=== PATIENT | male | born 1980 | race Caucasian/White ===

== ENCOUNTER 2019-09-09 10:18 | Emergency (ER) | payer OTHER ==
[2019-09-09 10:34] VITALS: BP 124/80; PULSE 65; RESP 18; TEMP 98.4
[2019-09-09] MEDS ORDERED: LIDOCAINE 1%-EPI 1:100,000 20 ML VIAL SQ STA (10:37)
--- NOTE | 2019-09-09 10:38 | ED ---
General Adult HPI - General Chief complaint: Skin/Abscess/Foreign Body Stated complaint: abcess on right side of scalp Time Seen by Provider: 09/09/19 10:32 Source: patient Mode of arrival: ambulatory Limitations: no limitations - History of Present Illness Initial comments: Dictation was produced using [employer] dictation software. please excuse any grammatical, word or spelling errors. This patient was cared for during a federal and state declared state of emergency secondary to Covid 19 Chief Complaint: 38 yo inmate presents with persistent scalp abscess History of Present Illness: Patient is a 38-year-old male who presents today with persistent abscess on the scalp. Patient was brought in by [facility] staff. Patient states he's had this abscess for several days. [facility] staff provided patient with Bactrim however his symptoms do not improve. They tried to drain it prior to coming to the emergency Department with no success. Patient reports that symptoms are persistent. He has been applying warm water to the abscess daily noted to treat the abscess. The ROS documented in this emergency department record has been reviewed and confirmed by me. Those systems with pertinent positive or negative responses have been documented in the HPI. All other systems are other negative and/or noncontributory. PHYSICAL EXAM: General Impression: Alert and oriented x3, not in acute distress HEENT: Normocephalic atraumatic, extra-ocular movements intact, pupils equal and reactive to light bilaterally, mucous membranes moist, abscess located just to the right of the midline posterior scalp, no surrounding erythema, abscess measures approximately 2 x 2 centimeters, there is a skin opening with dense purulent fluid at the tip Cardiovascular: Heart regular rate and rhythm Chest: Able to complete full sentences, no retractions, no tachypnea Abdomen: abdomen soft, non-tender, non-distended, no organomegaly Musculoskeletal: Pulses present and equal in all extremities, no peripheral edema Motor: no focal deficits noted Neurological: CN II-XII grossly intact, no focal motor or sensory deficits noted Skin: Intact with no visualized rashes Psych: Normal affect and mood ED course: 38 y Old male presents with persistent scalp abscess. [place] upon arrival are within acceptable limits. Wound site was anesthetized using lidocaine with epinephrine. There appeared to be a purulent plug blocking the outflow. Loculations were broken up with forceps. The plug was removed. Patient tolerated procedure well. He completed 40 course of action. Patient will be started on 5 day course of Keflex. [facility] follow-up with [facility]. - Related Data Previous Rx's Medication Instructions Recorded Cephalexin [Keflex] 500 mg PO Q6HR 5 Days #20 cap 09/09/19 Allergies Allergy/AdvReac Type Severity Reaction Status Date / Time bee venom protein (honey bee) Allergy Swelling Verified 09/09/19 10:27 Review of Systems ROS Statement: Those systems with pertinent positive or pertinent negative responses have been documented in the HPI. ROS Other: All systems not noted in ROS Statement are negative. Past Medical History Past Medical History: No Reported History History of Any Multi-Drug Resistant Organisms: None Reported Past Surgical History: No Surgical Hx Reported Past Psychological History: No Psychological Hx Reported Smoking Status: Never smoker Past Alcohol Use History: None Reported Past Drug Use History: None Reported General Exam Limitations: no limitations Course Vital Signs 09/09/19 10:23 Temperature 98.4 F Pulse Rate 65 Respiratory 18 Rate Blood Pressure 124/80 O2 Sat by Pulse 97 Oximetry Procedures - Incision & Drainage Consent Obtained: verbal consent Site: scalp Anesthetic Used: lidocaine 1%, with epi Sterile Field Used?: Yes Needle Aspiration Performed?: No Irrigation Performed?: Yes I&D Drainage Obtained: Pus Culture Obtained?: No Patient Tolerated Procedure: well Disposition Clinical Impression: Abscess Disposition: HOME SELF-CARE Condition: Good Instructions (If sedation given, give patient instructions): Abscess Incision and Drainage (ED) Prescriptions: Cephalexin [Keflex] 500 mg PO Q6HR 5 Days #20 cap Is patient prescribed a controlled substance at d/c from ED?: No Referrals: None,Stated [Primary Care Provider] - 1-2 days Time of Disposition: 10:54
== END 2019-09-09 11:03 | disposition home or self-care (01) ==
LOC: EC 10:18
DX: L02.811 Cutaneous abscess of head [any part, except face] (principal); Z91.030 Bee allergy status
CPT/HCPCS: 10060; 99283